=== PATIENT | female | born 1980 | race Caucasian/White ===

== ENCOUNTER 2021-06-10 09:28 | Day surgery (SDC) | payer BC, SELFPAY ==
[2021-06-06 11:17] LABS: EOSINOPHILS # (AUTO) 0.1 K/uL (0.0-0.4); EOSINOPHILS % (AUTO) 1.7 % (0.0-4.0); HEMATOCRIT 39.1 % (36-48); HEMOGLOBIN 12.8 g/dL (12.0-16.0); LYMPHOCYTES % (AUTO) 36.1 % (20.5-51.5); MEAN CORPUSCULAR HEMOGLOBIN 29 pg (27-31); MEAN CORPUSCULAR HGB CONC 33 % (32-36); MEAN CORPUSCULAR VOLUME 89 fL (79.0-98.0); MONOCYTES # (AUTO) 0.4 K/uL (0.0-1.0); MONOCYTES % (AUTO) 7.4 % (1.7-9.3); PLATELET COUNT (AUTO) 234 K/uL (130-430); WHITE BLOOD COUNT (AUTO) 5.9 K/uL (4.8-10.8)
[2021-06-06 11:28] LABS: BASOPHILS % (AUTO) 0.4 % (0.0-2.0); LYMPHOCYTES # (AUTO) 2.2 K/uL (1.0-5.5); NEUTROPHILS # (AUTO) 3.2 K/uL (1.8-7.7); NEUTROPHILS % (AUTO) 54.4 % (40.0-70.0)
[2021-06-06 11:46] LABS: ALBUMIN 3.7 g/dL (3.4-4.8); CALCIUM 8.5 mg/dL (8.4-11.0); CREATININE 0.53 mg/dL (0.55-1.30); POTASSIUM 4.5 mmol/L (3.5-5.1); TOTAL BILIRUBIN 0.3 mg/dL (0.0-1.0)
[~2021-06-10] VITALS: Ht 175.3 cm; Wt 81.6 kg
[2021-06-10 10:20] LABS: HCG,QUAL RESULT NEGATIVE (NEGATIVE)
[2021-06-10] MEDS ORDERED: PROPOFOL 200MG/ 20ML VIAL (DIPRIVAN) IV ONE (11:56)
[2021-06-10] MEDS ORDERED: LR 1,000 ML IV.SOLN IV ONE (11:56)
[2021-06-10] MEDS ORDERED: NS IRRIG SOLN 1000 ML IR ONE (11:56)
[2021-06-10] MEDS ORDERED: MEPERIDINE 50 MG/ML VIAL ONE (11:56)
[2021-06-10] MEDS ORDERED: SEVOFLURANE 15 MIN GAS INH ONE (11:56)
[2021-06-10] MEDS ORDERED: ACETAMINOPHEN 500 MG TABLET PO ONE (12:30)
[2021-06-10] MEDS ORDERED: HYDROmorphone 1 MG/ML INJ. CARTRIDGE IVP PRN (12:30)
[2021-06-10] MEDS ORDERED: ONDANSETRON HCL 4 MG/2 ML VIAL IVP PRN (12:30)
[2021-06-10] MEDS ORDERED: KETOROLAC TROMETHAMINE 30 MG VIAL IVP PRN (12:30)
[2021-06-10 15:10] VITALS: BP_SYST 106
== END 2021-06-10 14:57 | disposition home or self-care (01) ==
LOC: SDS 09:28 → SMU 09:29 → SDS 14:57
PROVIDERS: ATTEND Obstetrics & Gynecology
DX: N88.8 Other specified noninflammatory disorders of cervix uteri (principal); D06.9 Carcinoma in situ of cervix, unspecified; Z98.51 Tubal ligation status; Z20.822 Contact with and (suspected) exposure to COVID-19; Z79.899 Other long term (current) drug therapy
CPT/HCPCS: 36415 ×2; 57522; 80053; 84703; 85025; 86886 ×2; 86900 ×2; 86901 ×2; 87426; 88305; 88307; J2175; J2704; J7120; U0003